=== PATIENT | male | born 1990 | race Hispanic/Latino ===

== ENCOUNTER 2018-01-09 09:53 | Emergency (ER) | payer SELFPAY ==
[~2018-01-09] VITALS: Ht 172.7 cm; Wt 65.8 kg
== END 2018-01-09 10:45 | disposition home or self-care (01) ==
LOC: ED 09:53
DX: S61.212A Laceration without foreign body of right middle finger without damage to nail, initial encounter (principal); W29.3XXA Contact with powered garden and outdoor hand tools and machinery, initial encounter